=== PATIENT | female | born 1980 | race Caucasian/White ===

== ENCOUNTER 2017-05-01 09:35 | Inpatient (IN) | payer MEDICAID ==
[2017-05-01] MEDS: AMPICILLIN 2 GM/NS (PMX) 100 ML IVPB (11:24)
[2017-05-01 11:30] LABS: ADD MAN DIFF? NO
[2017-05-01] MEDS ORDERED: CARBOPROST 250 MCG INJ IM ×2 (11:30→18:30)
[2017-05-01] MEDS ORDERED: METHYLERGONOVINE 0.2 MG INJ IM ×2 (11:30→18:30)
[2017-05-01] MEDS ORDERED: LACTATED RINGER'S 1,000 ML IV (11:30)
[2017-05-01] MEDS ORDERED: OXYTOCIN 30 UNITS/LR 500 ML IV ×2 (11:30→18:30)
[2017-05-01] MEDS ORDERED: MISOPROSTOL 200 MCG TAB PR ×2 (11:30→18:30)
[2017-05-01 11:33] LABS: BASOPHILS % 0.2 % (0.0-2.0); EOSINOPHILS # 0.1 10^3/ul (0.0-0.5); EOSINOPHILS % 0.7 % (0.0-7.0); HEMATOCRIT 37.7 % (37.0-47.0); HEMOGLOBIN 12.4 g/dl (12.0-16.0); LYMPHOCYTES % 22.6 % (15.0-51.0); MEAN CORPUSCULAR HEMOGLOBIN 26.8 pg (29.0-33.0); MEAN CORPUSCULAR HGB CONC 32.9 g/dl (32.0-37.0); MEAN CORPUSCULAR VOLUME 81.4 fl (82.0-101.0); MEAN PLATELET VOLUME 10.7 fl (7.4-10.4); MONOCYTE # 0.5 10^3/ul (0.3-0.9); MONOCYTES % 5.5 % (0.0-11.0); NEUTROPHIL # 6.2 10^3/ul (1.6-7.5); NEUTROPHILS % 70.7 % (39.0-77.0); PLATELET COUNT 209 10^3/UL (140-415); RED BLOOD COUNT 4.63 10^6/ul (4.20-5.40); RED CELL DISTRIBUTION WIDTH 14.2 % (11.5-14.5)
[2017-05-01 11:33] LABS: WHITE BLOOD COUNT 8.8 10^3/ul (4.8-10.8)
[2017-05-01 11:59] LABS: INR 0.94; PROTIME 12.7 Sec (11.9-14.9)
[2017-05-01 12:00] LABS: PARTIAL THROMBOPLASTIN TIME 27.7 Sec (25.0-35.0)
[2017-05-01] MEDS: CEFAZOLIN 2 GM/50 ML (PMX) 50 ML IV ×2 (12:34→15:07)
[2017-05-01] MEDS ORDERED: PHENYLephrine (100 MCG/ML) 5ML SYG (12:36)
[2017-05-01] MEDS ORDERED: morphine SULFATE/PF (10 MG/10 ML) INJ (12:36)
[2017-05-01] MEDS ORDERED: OXYTOCIN 10 UNIT INJ (12:36)
[2017-05-01 12:42] LABS: HEPATITIS B SURFACE ANTIGEN NEGATIVE (NEGATIVE)
[2017-05-01] MEDS ORDERED: AMPICILLIN 1 GM/NS (PMX) 50 ML IVPB (13:00)
[2017-05-01] MEDS ORDERED: FENTAnyl 50 MCG/ML VIAL (13:02)
[2017-05-01] MEDS ORDERED: DEXAMETHASONE 4 MG/ML 1 ML INJ (13:03)
[2017-05-01] MEDS ORDERED: METOCLOPRAMIDE 10 MG INJ (13:03)
[2017-05-01] MEDS ORDERED: KETOROLAC 30 MG INJ (13:03)
[2017-05-01] MEDS ORDERED: ONDANSETRON 4 MG INJ (13:03)
[2017-05-01] MEDS: OXYTOCIN 30 UNITS/LR 500 ML IV ×3 (15:00→23:54)
[2017-05-01] MEDS ORDERED: ACETAMINOPHEN 500 MG TAB PO (18:30)
[2017-05-01] MEDS ORDERED: CEFAZOLIN 1 GM/50 ML (PMX) 50 ML IVPB (18:30)
[2017-05-01] MEDS ORDERED: HYDROCODONE/APAP (5/325) TAB PO (18:30)
[2017-05-01] MEDS ORDERED: NALOXONE (0.4 MG/ML) INJ IV (18:30)
[2017-05-01] MEDS ORDERED: DIPHENHYDRAMINE 50 MG INJ IV (18:30)
[2017-05-01] MEDS ORDERED: morphine 2 MG INJ IV (18:30)
[2017-05-01] MEDS ORDERED: morphine 4 MG/ML VIAL IV (18:30)
[2017-05-01] MEDS ORDERED: HYDROmorphONE 0.5 MG/0.5 ML SYG IV ×2 (18:30)
[2017-05-01] MEDS ORDERED: NALBUPHINE HCL (10 MG/1 ML) INJ IV (18:30)
[2017-05-01] MEDS ORDERED: ONDANSETRON 4 MG INJ IV (18:30)
[2017-05-01 19:44] LABS: RAPID PLASMA REAGIN NONREACTIVE (NR)
[2017-05-01] MEDS: CEFAZOLIN 2 GM/50 ML (PMX) 50 ML IVPB (21:21)
[2017-05-02] MEDS: OXYTOCIN 30 UNITS/LR 500 ML IV ×2 (03:59→08:43)
[2017-05-02] MEDS: CEFAZOLIN 2 GM/50 ML (PMX) 50 ML IVPB (05:23)
[2017-05-02 08:01] LABS: ADD MAN DIFF? NO
[2017-05-02 08:06] LABS: WHITE BLOOD COUNT 12.5 10^3/ul (4.8-10.8)
[2017-05-02 08:06] LABS: BASOPHILS % 0.2 % (0.0-2.0); EOSINOPHILS % 0.2 % (0.0-7.0); HEMATOCRIT 28.6 % (37.0-47.0); HEMOGLOBIN 9.5 g/dl (12.0-16.0); LYMPHOCYTES # 1.6 10^3/ul (0.8-2.9); MEAN CORPUSCULAR HEMOGLOBIN 27.1 pg (29.0-33.0); MEAN CORPUSCULAR HGB CONC 33.2 g/dl (32.0-37.0); MEAN CORPUSCULAR VOLUME 81.5 fl (82.0-101.0); MEAN PLATELET VOLUME 11.1 fl (7.4-10.4); MONOCYTE # 0.6 10^3/ul (0.3-0.9); MONOCYTES % 5.1 % (0.0-11.0); NEUTROPHIL # 10.1 10^3/ul (1.6-7.5); NEUTROPHILS % 80.9 % (39.0-77.0); PLATELET COUNT 185 10^3/UL (140-415); RED BLOOD COUNT 3.51 10^6/ul (4.20-5.40); RED CELL DISTRIBUTION WIDTH 14.3 % (11.5-14.5)
[2017-05-02] MEDS: SENNA/DOCUSATE NA (8.6MG/50MG) TAB PO ×2 (09:39→21:40)
[2017-05-02] MEDS: KETOROLAC 30 MG INJ IV (12:36)
[2017-05-02] MEDS: IBUPROFEN 600 MG TAB PO (17:26)
[2017-05-02] MEDS: HYDROCODONE/APAP (5/325) TAB PO ×3 (17:26→17:34)
[2017-05-03] MEDS: IBUPROFEN 600 MG TAB PO ×5 (00:19→23:29)
[2017-05-03] MEDS: SENNA/DOCUSATE NA (8.6MG/50MG) TAB PO ×2 (08:50→20:56)
[2017-05-03] MEDS: NA PHOSPHATE/BIPHOS 133 ML ENEMA PR (10:30)
[2017-05-03] MEDS: LANOLIN 7 GM TUBE TOP (19:45)
[2017-05-04] MEDS: OXYCODONE/ACETAMINOPHEN (5/325) TAB PO ×2 (00:58→08:19)
[2017-05-04] MEDS: IBUPROFEN 600 MG TAB PO ×2 (05:40→11:47)
[2017-05-04] MEDS: DIPHTH/TET/ACEL PERTUSS (ADULT) 0.5 ML VIAL IM* (09:00)
[2017-05-04] MEDS: SENNA/DOCUSATE NA (8.6MG/50MG) TAB PO (09:00)
== END 2017-05-04 15:25 | disposition home or self-care (01) | DRG 766 ==
LOC: OBT 09:35 → L-D 09:42 → OBT 10:41 → L-D 10:26 → PP1 17:58
PROC: 10D00Z1 Extraction of Products of Conception, Low, Open Approach (ICD-10-PCS; principal; 2017-05-01 12:00)
PROC: 0UL70ZZ Occlusion of Bilateral Fallopian Tubes, Open Approach (ICD-10-PCS; 2017-05-01 12:00)
PROC: 0UB20ZZ Excision of Bilateral Ovaries, Open Approach (ICD-10-PCS; 2017-05-01 12:00)
PROC: 3E033VJ Introduction of Other Hormone into Peripheral Vein, Percutaneous Approach (ICD-10-PCS; 2017-05-01 12:00)
DX: O34.83 Maternal care for other abnormalities of pelvic organs, third trimester (principal); Z30.2 Encounter for sterilization; Z37.0 Single live birth; Z3A.39 39 weeks gestation of pregnancy
CPT/HCPCS: 85025; 85610; 85730; 86592; 86850; 86900; 86901; 87070; 87075; 87340; 88302; 88305; 88307; 90715; 94760; 99464